=== PATIENT | male | born 1985 | race Caucasian/White ===

== ENCOUNTER 2025-03-23 15:17 | Emergency (ER) | payer BC ==
[~2025-03-23] VITALS: Ht 172.7 cm; Wt 81.1 kg
[2025-03-23 15:33] VITALS: BP 126/72; PULSE 63; RESP 16; TEMP 98; O2SAT 98
--- NOTE | 2025-03-23 15:38 | ELECTROCARDIOGRAPH REPORT ---
[facility] Test Date: 2025-03-23 Test Time: 15:22:27 Pat Name: STAS DURBIN Department: EMERGENCY ROOM Room: Gender: M Corporate Safety Director: ELSY : 1985 Requested By: KULWINDER DIANA Order Number: [id number] Reading MD: Measurements Intervals [place] Rate: 65 P: 69 UT: 157 QRS: 38 QRSD: 106 T: 43 QT: 409 QTc: 426 Interpretive Statements Sinus rhythm Consider right atrial enlargement Baseline wander in lead(s) II,III,aVF,V6 Please click the below link to view image of tracing.
[2025-03-23] MEDS: diazepam 5mg tablet PO ONE (16:41)
[2025-03-23] MEDS ORDERED: DIAZ2TAB PO (17:23)
--- NOTE | 2025-03-23 17:24 | Physician Documentation ---
History of Present Illness ~ Chief Complaint: Chest Pain Stated Complaint: CP/ANXIETY Time Seen by MD: 16:33 OK to notify your PCP?: Yes Source: patient Mode of Arrival: POV Exam Limitations: no limitations HPI 39 y/o male who arrives with family member with c/o anxiety which he states he has had for years but has gotten progressively worse over past few days. Requesting medication for anxiety. States his anxiety is causing him chest ruddy n. Chest pain improved with activity in his worse when he is trying to sleep at night stating it is making it difficult for him to sleep. He reports he has an appointment to get established with a psychiatrist next week. No hallucinations, delirium. No history of illicit drug use. Medication Reconciliation Allergies: Coded Allergies: No Known Allergies (Unverified , 03/23/25) Scheduled PRN Diazepam (Valium), 1 TAB PO QHS PRN for anxiety Past Medical History Past Medical History: Anxiety Past Surgical History: no surgical history Drug Use: none Review of Systems All Other Systems at this time: Reviewed and Negative Physical Exam Vital Signs: Temperature: 98.0, Source: Temporal, Heart Rate: 63, Respiratory Rate: 16, BP: 126/72, Pulse Oximetry: 98, Weight: 81.100 Oxygen Flow Rate: 0 Physical Exam General Appearance: Alert, WD/WN. NAD. HEENT: NCAT, PERRL, EOMI. Neck: Supple, trachea midline. Cardiovascular: RRR. No m/r/g. Lungs: CTAB. Breathing unlabored Extremities: Normal inspection. No edema. Skin: Warm/dry, normal color Neurological: Alert and oriented x4, normal gait. Psychiatric: Affect congruent with mood. Progress Results/Orders Results/Orders Completed Orders - RANJIT CRAFT Diazepam Tablet (Valium Tablet) (03/23/25 16:35) Vital Signs 03/23/25 15:33 Temp 98.0 Pulse 63 Resp 16 B/P (MAP) 126/72 Pulse Ox 98 O2 Flow Rate 0 Medical Decision Making Heart Score: 0 Differential Dx:Considerations: Include: angina, aortic dissection, chest wall pain, cholelithiasis, CHF, costochondritis, esophageal reflux/spasm, gastritis, herpes zoster, myocardial infarction, pericarditis, pleuritis, pancreatitis, pneumonia, pneumothorax, pulmonary embolus Departure Time of Disposition: 17:24 Disposition: 01 HOME / SELF CARE / HOMELESS Impression: Primary Impression: Anxiety Condition: Stable Discharge Instructions: Generalized Anxiety Disorder, Adult Additional Instructions: F/U WITH PCP NEXT WEEK RETURN TO ER IF SYMPTOMS UNCONTROLLED I AGREED TO SEND YOU WITH THREE TABLETS OF VALIUM THIS IS SOMETHING WE DO NOT GENERALLY DO, SO PLEASE REALIZE IT IS NOT SOMETHING THAT WE CAN CONTINUE TO REFILL IT IS A MEDICATION THAT HAS INCREASED RISKS FOR ADDICTIVE POTENTIAL Referrals: NO PRIMARY CARE PROVIDER (PCP) Prescriptions Diazepam (Valium) 2 Mg Tablet 1 TAB PO QHS PRN for anxiety for 3 Days, #3 TAB 0 Refills DX: ACUTE ANXIETY F41.0 Prov: RANJIT CRAFT 03/23/25 Education Educated: Patient, Family Educated regarding: diagnosis, treatment, need for follow up Signature Scribe Signature: x Attestation: RANJIT Bullard Mar 23, 2025 17:24
== END 2025-03-23 17:34 | disposition home or self-care (01) ==
LOC: ER 15:18
DX: F41.9 Anxiety disorder, unspecified (principal); I49.8 Other specified cardiac arrhythmias
CPT/HCPCS: 93005; 99283